=== PATIENT | male | born 2000 | race Two or more races ===

== ENCOUNTER → 2021-03-06 09:19 | Outpatient (CLI) | payer OTHER | END | disposition home or self-care (01) | LOC: LAB 09:19 | PROVIDERS: ATTEND Pediatrics | DX: R07.0 Pain in throat (principal); J11.1 Influenza due to unidentified influenza virus with other respiratory manifestations; B34.8 Other viral infections of unspecified site; E16.1 Other hypoglycemia ==

== ENCOUNTER 2023-04-23 18:48 | Emergency (ER) | payer OTHER ==
[~2023-04-23] VITALS: Ht 182.9 cm; Wt 80.7 kg
== END 2023-04-24 00:02 | disposition home or self-care (01) ==
LOC: ER 18:48
DX: J10.1 Influenza due to other identified influenza virus with other respiratory manifestations (principal); Z20.822 Contact with and (suspected) exposure to COVID-19

== ENCOUNTER 2023-07-31 10:03 | Outpatient (CLI) | payer OTHER ==
[2023-07-31 10:58] LABS: HEMATOCRIT 42.3 % (39.0-48.0); HEMOGLOBIN 14.4 g/dL (13-16.00); MEAN CELL VOLUME 87.5 fL (80.0-100.00); MEAN CORPUSCULAR HEMOGLOBIN 29.7 pg (27.00-32.0); PLATELET COUNT 243 K/uL (150-450); RED BLOOD COUNT 4.83 M/uL (4.00-6.00)
[2023-07-31 11:06] LABS: PH,URINE 6.5 (5.0-8.0); URINE APPEARANCE Clear; URINE BILIRRUBIN Negative (NEGATIVE); URINE BLOOD Negative; URINE COLOR Yellow; URINE GLUCOSE Negative (NEGATIVE); URINE LEUKOCYTE Negative; URINE NITRATE Negative; URINE PROTEIN Negative (NEGATIVE); URINE UROBILINOGEN 0.2 E.U./dl
[2023-07-31 11:24] LABS: URINE BACTERIA 2.5 uL (0.0-1933); URINE EPITHELIAL CELLS 0.7 uL (0.0-38.8); URINE RBC 0.1 uL (0.0-20.8); URINE WBC 0.4 uL (0.0-23.2)
[2023-07-31 11:38] LABS: ALBUMIN 4.2 gm/dL (3.4-5.0); BILIRUBIN TOTAL 0.76 mg/dL (0.3-1.2); CALCIUM 9.5 mg/dL (8.5-10.1); CHOL HDL RATIO 2.6 (0-5.0); CREATININE SERUM 0.84 mg/dL (0.70-1.30); GFR 114.26; GLOBULINA 3.2 G/DL (2.4-3.5); POTASSIUM 4.25 mEq/L (3.5-5.1); TOTAL PROTEIN 7.4 gm/dL (6.4-8.2); TSH 1.26 uIU/mL (0.358-3.74)
== END 2023-07-31 11:05 | disposition home or self-care (01) ==
LOC: LAB 10:03
DX: I11.9 Hypertensive heart disease without heart failure (principal); J80 Acute respiratory distress syndrome; E78.2 Mixed hyperlipidemia; E03.4 Atrophy of thyroid (acquired); R31.9 Hematuria, unspecified; E11.49 Type 2 diabetes mellitus with other diabetic neurological complication; K92.1 Melena; N40.0 Benign prostatic hyperplasia without lower urinary tract symptoms; Z12.11 Encounter for screening for malignant neoplasm of colon

== ENCOUNTER 2024-02-18 09:16 | Outpatient (CLI) | payer OTHER ==
[~2024-02-18 09:16] MED LIST: NAPROXEN500 MG PO
[2024-02-18 10:24] LABS: HEMOGLOBIN 14.7 g/dL (13-16.00); MEAN CELL VOLUME 86.3 fL (80.0-100.00); MEAN CORPUSCULAR HEMOGLOBIN 30.2 pg (27.00-32.0); PLATELET COUNT 233 K/uL (150-450); RED BLOOD COUNT 4.87 M/uL (4.00-6.00); RED CELL DISTRIBUTION WIDTH 14.4 % (11.5-14.5)
[2024-02-18 10:42] LABS: URINE APPEARANCE Clear; URINE BILIRRUBIN Negative (NEGATIVE); URINE BLOOD Negative; URINE COLOR Yellow; URINE GLUCOSE Negative (NEGATIVE); URINE KETONE Negative (NEGATIVE); URINE LEUKOCYTE Negative; URINE NITRATE Negative; URINE PROTEIN Negative (NEGATIVE); URINE UROBILINOGEN 0.2 E.U./dl
[2024-02-18 10:43] LABS: URINE BACTERIA 0 uL (0.0-1933); URINE EPITHELIAL CELLS 0.4 uL (0.0-38.8); URINE RBC 0.1 uL (0.0-20.8); URINE WBC 0.7 uL (0.0-23.2)
[2024-02-18 11:29] LABS: CALCIUM 9.3 mg/dL (8.5-10.1); CHOL HDL RATIO 2.7 (0-5.0); CREATININE SERUM 0.82 mg/dL (0.70-1.30); GFR 117.48; POTASSIUM 4.25 mEq/L (3.5-5.1); T4 FREE 0.99 NG/ML (0.76-1.46); TSH 2.92 uIU/mL (0.358-3.74)
== END 2024-02-18 09:23 | disposition home or self-care (01) ==
LOC: LAB 09:16
PROVIDERS: ATTEND Internal Medicine
DX: E03.9 Hypothyroidism, unspecified (principal); I10 Essential (primary) hypertension; E78.5 Hyperlipidemia, unspecified

== ENCOUNTER 2024-11-26 09:08 | Outpatient (CLI) | payer OTHER ==
[2024-11-26 09:55] LABS: BASO % 0.6 % (0.1-1.2); EOS # 0.04 (0.04-0.54); EOS % 0.9 % (0.7-7.0); HEMOGLOBIN 14.8 g/dL (13.7-17.5); LYMPH # 0.97 (1.18-3.74); LYMPH % 20.7 % (19.3-53.1); MEAN CORPUSCULAR HEMOGLOBIN 29.5 pg (25.6-32.2); MONO # 0.76 (0.24-0.82); NEUT # 2.87 (1.56-6.13); NEUT % 61.4 % (34.0-71.1); PLATELET COUNT 204 K/uL (163-369); RED BLOOD COUNT 5.02 M/uL (4.63-6.08); RED CELL DISTRIBUTION WIDTH 12.9 % (11.6-14.4)
[2024-11-26 09:58] LABS: PH,URINE 6.5 (5.0-8.0); URINE APPEARANCE Clear; URINE BILIRRUBIN Negative (NEGATIVE); URINE BLOOD Negative; URINE COLOR Yellow; URINE GLUCOSE Negative (NEGATIVE); URINE KETONE Negative (NEGATIVE); URINE LEUKOCYTE Negative; URINE NITRATE Negative; URINE PROTEIN Negative (NEGATIVE); URINE UROBILINOGEN 0.2 E.U./dl
[2024-11-26 10:00] LABS: MONO % 16.2 % (4.7-12.5)
[2024-11-26 10:03] LABS: URINE BACTERIA 1.2 uL (0.0-1933); URINE EPITHELIAL CELLS 0.4 uL (0.0-38.8); URINE RBC 0.7 uL (0.0-20.8); URINE WBC 0.6 uL (0.0-23.2)
[2024-11-26 10:09] LABS: ob NEGATIVE (NEGATIVE)
[2024-11-26 11:00] LABS: BILIRUBIN TOTAL 0.77 mg/dL (0.3-1.2); CALCIUM 8.9 mg/dL (8.5-10.1); CHOL HDL RATIO 2.5 (0-5.0); CREATININE SERUM 0.83 mg/dL (0.70-1.30); GFR 114.81; GLOBULINA 3.4 G/DL (2.4-3.5); POTASSIUM 4.25 mEq/L (3.5-5.1); PROSTATIC SPECIFIC ANTIGEN 0.268 NG/ML (0.010-4.00); TOTAL PROTEIN 7.4 gm/dL (6.4-8.2); TSH 1.19 uIU/mL (0.358-3.74)
== END 2024-11-26 09:14 | disposition home or self-care (01) ==
LOC: LAB 09:08
DX: J06.9 Acute upper respiratory infection, unspecified (principal); N39.0 Urinary tract infection, site not specified; E88.810 Metabolic syndrome; E55.9 Vitamin D deficiency, unspecified; R31.0 Gross hematuria; E78.2 Mixed hyperlipidemia; K92.0 Hematemesis; E03.8 Other specified hypothyroidism; E11.00 Type 2 diabetes mellitus with hyperosmolarity without nonketotic hyperglycemic-hyperosmolar coma (NKHHC); K92.1 Melena